=== PATIENT | female | born 1945 ===

== ENCOUNTER 2021-04-23 08:45 | Inpatient (IN) | payer OTHER ==
[~2021-04-23] VITALS: Ht 157.5 cm; Wt 55.8 kg
[2021-04-23] MEDS ORDERED: COZAAR50 MG PO (10:15)
[2021-04-23] MEDS ORDERED: HYDROCHLOROTH12.5 MG PO (10:15)
[2021-04-23] MEDS ORDERED: FORTAMET500 MG PO (10:15)
[2021-04-23] MEDS ORDERED: [UNRECOGNIZED DRUG - OTHER] PO (10:16)
[2021-04-23] MEDS ORDERED: VITAMIN D PO (10:17)
[2021-04-23] MEDS ORDERED: GLUCOS PO (10:17)
[2021-04-30] MEDS ORDERED: ATORVASTATIN CA40 MG (08:51)
[2021-04-30] MEDS ORDERED: VITAMIN D3250 MC1 PO (08:52)
[2021-04-30] MEDS ORDERED: GLUCOSAMINE1000 MG (08:53)
[2021-04-30] MEDS ORDERED: DILTIAZEM ER120 MG (08:53)
== END 2021-04-30 12:26 | disposition home or self-care (01) | DRG 331 ==
LOC: SURH 04-27 07:00 → O/R 04-27 07:45 → SURH 04-27 07:45 → O/R 04-27 14:01 → SURH 04-27 18:52 → SURG 04-28 04:10
PROVIDERS: ADMIT Colon & Rectal Surgery; ATTEND Colon & Rectal Surgery
PROC: 0DTP4ZZ Resection of Rectum, Percutaneous Endoscopic Approach (ICD-10-PCS; 2021-04-27)
PROC: 0DJD8ZZ Inspection of Lower Intestinal Tract, Via Natural or Artificial Opening Endoscopic (ICD-10-PCS; 2021-04-27)
PROC: 0DBN4ZZ Excision of Sigmoid Colon, Percutaneous Endoscopic Approach (ICD-10-PCS; principal; 2021-04-27 07:00)
DX: K57.32 Diverticulitis of large intestine without perforation or abscess without bleeding (principal)